=== PATIENT | female | born 1950 | race Caucasian/White ===

== ENCOUNTER 2020-10-17 02:53 | Inpatient (IN) | payer MEDICARE ==
[~2020-10-17] VITALS: Ht 167.6 cm; Wt 68.0 kg
--- NOTE | 2020-10-17 03:00 | NUR ---
Md assessed patient at this time.
--- NOTE | 2020-10-17 03:06 | NUR ---
Patient rbought in by EMS for a Mechanical fall at home. A&Ox4. Left lower leg - tib/fib area are swollen. Patient able to wiggle toes and sensation/pulses of both feet are WNLs. Patient states she did not lose conciousness during fall.
[2020-10-17] MEDS ORDERED: ASPI81TA31 PO (03:43)
[2020-10-17] MEDS ORDERED: THYR90TA PO (03:46)
[2020-10-17] MEDS ORDERED: ATOR20TA PO (03:46)
[2020-10-17] MEDS ORDERED: AMLO-212 PO (03:46)
[2020-10-17] MEDS ORDERED: CHOL10002 PO (03:46)
[2020-10-17] MEDS ORDERED: LOSA50TA39 PO (03:46)
[2020-10-17] MEDS ORDERED: ONDANSETRON 4 MG/2 ML VIAL ONE ×2 (03:53→05:02)
[2020-10-17] MEDS ORDERED: HYDROMORPHONE 1 MG/1 ML DISP.SYRIN ONE ×2 (03:53→05:02)
[2020-10-17 04:00] LABS: BASOPHILS % (AUTO) 0.4 % (0.0-2.0); EOSINOPHILS # (AUTO) 0.1 K/uL (0.0-0.7); EOSINOPHILS % (AUTO) 0.6 % (0.0-7.0); HEMATOCRIT 45.9 % (31.2-41.9); HEMOGLOBIN 15.4 g/dL (10.9-14.3); LYMPHOCYTES # (AUTO) 1.4 K/uL (20.0-40.0); LYMPHOCYTES % (AUTO) 10.9 % (20.5-51.5); MEAN CORPUSCULAR HEMOGLOBIN 32.3 uug (24.7-32.8); MEAN CORPUSCULAR HGB CONC 34 g/dL (32.3-35.6); MEAN CORPUSCULAR VOLUME 96.2 fL (75.5-95.3); MONOCYTES # (AUTO) 1.2 K/uL (2.0-10.0); MONOCYTES % (AUTO) 9.2 % (0.0-11.0); NEUTROPHILS % (AUTO) 78.9 % (38.5-71.5); PLATELET COUNT (AUTO) 174 K/uL (179-408); RED BLOOD CELL COUNT(AUTO) 4.77 MIL/uL (3.63-4.92); WHITE BLOOD COUNT (AUTO) 12.7 K/uL (3.8-11.8)
[2020-10-17 04:09] LABS: POTASSIUM 4.1 mmol/L (3.5-5.1)
[2020-10-17 04:15] LABS: BILIRUBIN,DIRECT 0.1 mg/dL (0.0-0.2); BILIRUBIN,TOTAL 0.3 mg/dL (0.2-1.0); TOTAL PROTEIN, SERUM 6.7 g/dL (6.4-8.2)
[2020-10-17] MEDS: HYDROMORPHONE 1 MG/1 ML DISP.SYRIN IV ONE ×2 (04:20→04:30)
[2020-10-17] MEDS: ONDANSETRON 4 MG/2 ML VIAL IV ONE ×2 (04:21→04:45)
--- NOTE | 2020-10-17 04:30 | NUR ---
Patient will be going to room 327
--- NOTE | 2020-10-17 06:01 | NUR ---
Note taz in ED - 10/17/20 at 0621 by SAGRARIO CAM boot applied prior to transport to [facility] floor. CMS intact with good perfusion, denies any numbness or tingling on the extremity. Patient transported to [facility] in stable condition.
--- NOTE | 2020-10-17 06:19 | NUR ---
Patient transferred to Room 327 via rney under the care of Kimber XIE. A&Ox4. CAM boot on left leg. All belongings accompanied patient and were given to appropriate hospital entry level marketing representative along with belongings list. Stable condition. Note was given to receiving nurse to have Surgeon and MD contact patients . Dr. Ilana Ritter. Phone number was attached. Note put on door.
--- NOTE | 2020-10-17 06:25 | NUR ---
Pt came from ER c/o left leg pain due to non-syncopal ground fall. Per tibia/fibula xray, pt has fractures of the distal fibular metadiaphysis and medial malleolus. Pt is AOx4. Denies any acute distress/CP/SOB. Skin is intact. CAM boot on left leg in place and intact. Talked to the , Dr. Ilana Ritter, on the phone regarding her plan of care. Note to have Surgeon and MD contact patient's put on the pt's door. Personal belongings checked and with the patient. Safety measures in place. Call light within reach. Bed low and locked in position. Will endorse to oncoming nurse accordingly.
[2020-10-17] MEDS ORDERED: HYDROCODONE/APAP 5-325MG TABLET PO PRN (07:00)
[2020-10-17] MEDS ORDERED: MAGNESIUM HYDROXIDE 30 ML LIQUID UDC PO PRN (07:00)
[2020-10-17] MEDS ORDERED: MORPHINE SULFATE 2 MG/1 ML DISP.SYRIN IV PRN (07:00)
[2020-10-17] MEDS ORDERED: ZOLPIDEM 5 MG TABLET PO PRN (07:00)
[2020-10-17] MEDS ORDERED: IV D5 1/2 NS 1000 ML 1,000 ML IV PRN (07:00)
[2020-10-17] MEDS ORDERED: ONDANSETRON 4 MG/2 ML VIAL IV PRN (07:00)
[2020-10-17] MEDS ORDERED: Z GUARD REMEDY PASTE 57 GM TUBE TOP PRN (07:00)
[2020-10-17] MEDS ORDERED: PANTOPRAZOLE SODIUM 40 MG TABLET.DR PO SCH (07:00)
[2020-10-17] MEDS ORDERED: ACETAMINOPHEN 325 MG TABLET PO PRN (07:00)
--- NOTE | 2020-10-17 07:45 | NUR ---
Received patient in bed, awake, alert and oriented. Denies pain or discomfort. No respiratory distress noted. Kept comfortable. Call light within reach. Will continue to monitor.
--- NOTE | 2020-10-17 08:48 | NUR ---
Per patient she will sign surgery consent forms when she talks to Dr. Anaya and anesthesiologist. Called surgery x2 to let them know but no answer. Patient denies pain. Cooperative with care. Will follow up with surgery.
[2020-10-17] MEDS ORDERED: POLYMYXIN B SULFATE IR ONE ×2 (09:30)
[2020-10-17] MEDS ORDERED: BACITRACIN 50000 UNIT IR ONE ×2 (09:30)
--- NOTE | 2020-10-17 09:30 | NUR ---
Spoke with Elvira at surgery and gave report. Informed that patient wants to talk to Dr. Anaya and anesthesiologist first. user support analyst for 10am arranged. Patient is made aware.
[2020-10-17] MEDS ORDERED: VANCOMYCIN 1000 MG VIAL ONE (10:06)
[2020-10-17] MEDS ORDERED: BUPIVACAINE/EPI PF 0.25% 30 ML VIAL ONE (10:07)
--- NOTE | 2020-10-17 10:20 | NUR ---
Picked up for surgery in stable condition. No acute distress. Alert and oriented. No complaints of pain.
[2020-10-17] MEDS ORDERED: MIDAZOLAM HCL 10 MG/2 ML VIAL ONE (10:37)
[2020-10-17 10:38] LABS: *BILIRUBIN,URIN NEGATIVE (NEGATIVE); *BLOOD, URINE NEGATIVE (NEGATIVE); *CLARITY,URINE CLEAR (CLEAR); *COLOR,URINE YELLOW (YELLOW); *KETONES,URINE NEGATIVE (NEGATIVE); *UROBILINOGEN,URINE 0.2 E.U./dl (NORMAL); LEUKOCYTE ESTERASE ,URINE NEGATIVE (NEGATIVE); NITRITE, URINE NEGATIVE (NEGATIVE); PH,URINE 6.5 (5.0-8.0); UGLUCOSE NEGATIVE (NEGATIVE)
[2020-10-17] MEDS ORDERED: FENTANYL CITRATE 100 MCG/2 ML AMPUL ONE ×2 (10:38→12:21)
[2020-10-17] MEDS ORDERED: MORPHINE SULFATE 4 MG/1 ML DISP.SYRIN IV PRN (13:00)
[2020-10-17] MEDS ORDERED: IV D5W-0.45% NS +20 KCL 1,000 ML IV PRN (13:00)
[2020-10-17] MEDS ORDERED: HYDROCODONE/APAP 10-325 MG TABLET PO PRN (13:00)
[2020-10-17 13:17] VITALS: BP 125/54
--- NOTE | 2020-10-17 13:17 | NUR ---
Received from surgery. Awake, alert and oriented. Verbalized mild pain. REfused pain medication. On 2 Lpm via nc O2 saturation 97%. VS 125/54, 75, 18, 97%, 98.2. No sob noted. Able to wiggle her toes. Left lower leg with dry dressing, intact, slightly swollen. No bleeding noted. Ice pack and per endorsement from Malik Bullock RN keep for 2 more days. Patient cooperative. Will continue to monitor.
[2020-10-17 13:45] VITALS: BP 137/54
--- NOTE | 2020-10-17 13:45 | NUR ---
Patient awake and alert, oriented. On 2 Lpm via nc O2 saturation 97%. No sob noted. VS 137/54, 64, 97% on 2 Lpm via nc, [id number]. Patient verbalized she wants to rest. Left leg with dressing intact and patent. No bleeding noted. Kept comfortable. Call light placed within reach. Will continue to monitor.
[2020-10-17 14:30] VITALS: BP 118/72
[2020-10-17] MEDS ORDERED: DIAZEPAM 5 MG TABLET PO PRN (15:00)
[2020-10-17 16:00] VITALS: BP 134/52
[2020-10-17 17:00] VITALS: BP 128/74
[2020-10-17] MEDS ORDERED: CEFAZOLIN 1 G in IV DEXTROSE 5% 50 ML IV ONE ×2 (17:00→19:00)
[2020-10-17 18:14] VITALS: BP 133/54
--- NOTE | 2020-10-17 18:16 | NUR ---
Patient is alert and oriented x4. Verbalized mild pain but she refuses to take pain medication. Denies tingling or numbness of left leg. Able to wiggle her toes. Capillary refill <3sec. Skin is warm and dry to touch. Swelling noted. Ice pack applied as ordered. Patient is cooperative with care and verbalized understanding. Will continue to monitor.
[2020-10-17] MEDS ORDERED: CEFAZOLIN 1 G in IV DEXTROSE 5% 50 ML IV SCH (19:00)
[2020-10-17] MEDS ORDERED: HYDR-3980 PO (20:14)
[2020-10-17] MEDS ORDERED: ZOLP5TAB2 PO (20:14)
--- NOTE | 2020-10-17 21:08 | NUR ---
Received pt resting in bed. AAO x4. No acute distress noted. Denies pain/ discomfort. Pt is for discharge to home. Dr. Aburto came and talked to the pt. IV on left AC removed. Pt had surgery on left ankle, cap refill <3, denies numbness or tingling sensation. Picked up by [employer] at 2105. 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
[2020-10-17] MEDS ORDERED: PROPOFOL 200 MG/20 ML BOTTLE IV ONE (21:14)
[2020-10-17] MEDS ORDERED: CEFAZOLIN 1 G VIAL MC ONE (21:14)
[2020-10-17] MEDS ORDERED: LIDOCAINE-MPF 2% 5 ML VIAL MC ONE (21:14)
[2020-10-17] MEDS ORDERED: EPHEDRINE SULFATE 50 MG/ML AMPUL MC ONE (21:14)
[2020-10-17] MEDS ORDERED: KETOROLAC TROMETHAMINE 30 MG INJ IM ONE (21:14)
[2020-10-17] MEDS ORDERED: DEXAMETHASONE SOD PHOSPHATE 4 MG INJ IV ONE (21:14)
[2020-10-17] MEDS ORDERED: ONDANSETRON 4 MG/2 ML VIAL IV ONE (21:14)
== END 2020-10-17 21:15 | disposition home health service (06) | DRG 494 ==
LOC: ER 02:54 → MEDSURG3 05:47
PROVIDERS: ADMIT Internal Medicine; ATTEND Internal Medicine
PROC: 0QSH04Z Reposition Left Tibia with Internal Fixation Device, Open Approach (ICD-10-PCS; principal; 2020-10-17)
PROC: 0QSK04Z Reposition Left Fibula with Internal Fixation Device, Open Approach (ICD-10-PCS; 2020-10-17)
DX: S82.842A Displaced bimalleolar fracture of left lower leg, initial encounter for closed fracture (principal); W18.30XA Fall on same level, unspecified, initial encounter; E78.5 Hyperlipidemia, unspecified; E03.9 Hypothyroidism, unspecified; I10 Essential (primary) hypertension; Z20.822 Contact with and (suspected) exposure to COVID-19; D69.6 Thrombocytopenia, unspecified; Y93.9 Activity, unspecified; Y92.009 Unspecified place in unspecified non-institutional (private) residence as the place of occurrence of the external cause
CPT/HCPCS: 36415; 71045; 73590; 73610; 85025; 85730; 93005; G0378; J0690; J1100; J1170; J1885; J2250; J2270; J2405; J3010; J3370; J3490; J7060; U0003